=== PATIENT | male | born 1995 | race Caucasian/White ===

== ENCOUNTER 2021-04-11 10:16 | Emergency (ER) | payer SELFPAY ==
[2021-04-11 10:46] VITALS: BP 139/84; PULSE 75; RESP 15; TEMP 36.9; O2SAT 96; BMI 32.3
--- NOTE | 2021-04-11 10:55 | ED_ITS ---
HPI - Male Genitourinary General: Chief complaint: Urogenital-Male Stated complaint: PAINFUL URINATION Time Seen by Provider: 04/11/21 10:27 Source: patient Mode of arrival: ambulatory Limitations: no limitations History of Present Illness: HPI Narrative: Patient is a 25-year-old male who presents to ED today with complaints of dysuria and penile discharge over the past few days. Patient states he is monogamous with his girlfriend. They have had unprotected vaginal intercourse. Patient denies any anal intercourse. He has not noticed any rashes or lesions to his genitalia. MD Complaint: penile discharge and dysuria Onset (ago): day(s) Duration: constant Radiation: penis Quality: sharp Relieving factors: none Exacerbating factors: urination Associated symptoms: Reports dysuria; Deny hematuria or urinary incontinence Related Data: Sexually active: Yes Review of Systems Const: Denies: fever(s), chills, body aches, fatigue or malaise GI: Denies: abdominal pain : Reports: dysuria and penile discharge; Denies: flank pain, difficulty urinating, urinary frequency, urinary urgency, urinary hesitancy, urinary dribbling, urinary incontinence, hematuria, genital pain, genital lesions, testicular pain, testicular mass, scrotal swelling, painful ejaculations or hematospermia Musc: Denies: back pain Skin/Breast: Denies: rash Physical Exam Const: COMMON NORMALS: no acute distress, average body habitus, patient oriented x3, no limitations, healthy appearing, alert and well nourished : COMMON NORMALS: Yes no CVA tenderness and Yes scrotum normal BLADDER/KIDNEY EXAM: Yes no CVA tenderness MALE GROIN/PERINEUM EXAM: No Genital lesions present PENIS: no condylomata, not edematous, not erythematous, no vesicles and No Genital lesions present MEATUS: meatal discharge SCROTUM: Yes testes descended bilaterally and No scrotal swelling TESTES: Yes testicular lie normal, No testicular swelling and Yes epididymides normal OTHER: normal genital exam apart from penile discharge noted Back/Pelvis: COMMON NORMALS: no CVA tenderness Neuro: COMMON NORMALS: patient oriented x3 SENSORIUM/ORIENTATION: Yes alert Course Vital Signs: Vital signs: Vital Signs Temperature 98.5 F 04/11/21 10:46 Pulse Rate 75 04/11/21 10:46 Respiratory Rate 15 04/11/21 10:46 Blood Pressure 139/84 04/11/21 10:46 Pulse Oximetry 96 04/11/21 10:46 MDM - Male MDM Narrative: Medical decision making narrative: Patient here for dysuria and penile discharge. His UA is normal. Gonorrhea/chlamydia ran off of his urine. Will be treated prophylactically with IM Rocephin and will place on doxycycline. Instructed for no sexual abstinence until antibiotics are complete and he knows testing results. Recommend sexual partners also get tested. Lab Data: Attestation: I reviewed the patient's lab results. Labs: Lab Results 04/11/21 10:59 Urine Color Yellow (Yellow) Urine Appearance Clear (CLEAR) Urine pH 5 (5-7) Ur Specific Gravit y 1.025 (1.005-1.030) Urine Protein Neg (Negative) Urine Glucose (UA) Norm (Normal) Urine Ketones Negative (Negative) Urine Blood Neg (Negative) Urine Nitrate Negative (Negative) Urine Bilirubin Neg (Negative) Urine Urobilinogen Norm mg/dL mg/dL (Negative) Ur Leukocyte Cheryl ase Negative (Negative) Discharge Plan Discharge Patient Disposition: Home Clinical Impression: Urethritis Condition: Stable Prescriptions: New doxycycline hyclate 100 mg capsule 100 mg PO Q12H 7 Days Qty: 14 RF: 0 Discharge Orders: Discharge ED (Routine); Ordered 04/11/21 Ordered By: Rachel Larson Patient Instructions: Urethritis - Male Activity Restrictions/Additional Instructions: As we discussed you need to abstain from all sexual activity until you complete the entire antibiotic course and until you know results from testing today. If gonorrhea/chlamydia testing comes back positive you need to alert all sexual partners so they can get tested and treated as well. Coding Level of Care Code ED Creative Writing Professor for Yemi Fwd Exam Expanded Problem Focused
[2021-04-11 11:20] LABS: Add Urine Microscopic? NO; Charge for UA Resulting for Rev
[2021-04-11 11:26] LABS: Urine Appearance Clear (CLEAR); Urine Color Yellow (Yellow); pH Urine 5 (5-7)
[2021-04-11 11:27] LABS: Bilirubin Urine Neg (Negative); Blood Urine Neg (Negative); Glucose Urine UA Norm (Normal); Ketones Urine Negative (Negative); Leukocyte Esterase Urine Negative (Negative); Nitrate Urine Negative (Negative); Protein Urine Neg (Negative); Specific Gravity, Urine 1.025 (1.005-1.030); Urobilinogen Urine Norm (Negative)
[2021-04-11 11:50] VITALS: BP 139/84; PULSE 75; RESP 15; TEMP 36.9; O2SAT 96
== END 2021-04-11 11:50 | disposition home or self-care (01) ==
PROVIDERS: Emergency Provider Physician Assistant
DX: N34.2 Other urethritis (principal)
CPT/HCPCS: 81003; 87491; 87591; 96372; 99283; J0696

== ENCOUNTER 2023-03-23 16:34 | Emergency (ER) | payer SELFPAY ==
[2023-03-23 16:38] VITALS: BP 123/89; PULSE 85; RESP 16; TEMP 36.6; O2SAT 98; BMI 36.6
--- NOTE | 2023-03-23 16:54 | W.ED.WOUNDLC ---
HPI - Wound/Laceration General: Chief Complaint: Wound/Laceration Stated Complaint: laceration right thumb Time Seen by Provider: 03/23/23 16:43 History of Present Illness: 27-year-old male patient comes in today with injury to the right thumb. On exam patient has a 4 cm laceration to the volar aspect of the right thumb. Patient has normal range of motion of the thumb. Patient reports tetanus is up-to-date. Patient appears nontoxic. Patient denies any chronic medical problems. No injury to the nailbed is noted. No foreign body is noted. Review of Systems General: Reports: 10 or more systems reviewed and unremarkable except in HPI and below Musc: Reports: extremity pain Skin/Breast: Reports: new lesions Physical Exam Const: COMMON NORMALS: alert HENMT: COMMON NORMALS: atraumatic HEAD & SCALP: atraumatic Neck/C-Spine: COMMON NORMALS: full ROM Resp: COMMON NORMALS: normal respiratory effort Cardio: COMMON NORMALS: regular rate RATE: regular rate Back/Pelvis: COMMON NORMALS: thoracic and lumbar spine normal to inspection Extremity: RIGHT UPPER EXTREMITY: Yes hand & digits (Flap 4 cm laceration dorsal thumb) Neuro: SENSORIUM/ORIENTATION: Yes alert Skin: TRAUMA: laceration (Right dorsal thumb) flap Procedures Laceration Laceration 1: Site: hand (Right thumb) Side (If applicable): right Size (cm): 4 Description: flap Local Anesthetic: lidocaine 2% and with epi Amount of anesthesia used (mL): 4 Pre-repair: wound explored and irrigated extensively Skin layer closed with: nylon Size (cm): 4-0 Number of sutures: 8 Course Vital Signs: Vital signs: Vital Signs Temperature 97.9 F 03/23/23 16:38 Pulse Rate 85 03/23/23 16:38 Respiratory Rate 16 03/23/23 16:38 Blood Pressure 123/89 03/23/23 16:38 Pulse Oximetry 98 03/23/23 16:38 MDM - Wound/Laceration Medical Decision Making Patient presented with a laceration to the right thumb. Patient had normal range of motion of the thumb. No foreign bodies were noted. No tendon injury was noted. No fracture was noted. No injury to the nailbed was noted. Differential diagnosis included but not limited to foreign body, fracture, laceration, tendon injury. Wound was repaired with sutures. Patient tolerated well. Dressing applied and patient discharged home. Patient reported understanding of care plan and need for follow-up or return to the ER. No radiology studies performed this visit Discharge Plan Discharge Patient Disposition: Home Clinical Impression: Laceration of thumb Qualifiers: Encounter type: initial encounter Damage to nail status: without damage Foreign body presence: without foreign body Laterality: right Qualified Code(s): S61.011A - Laceration without foreign body of right thumb without damage to nail, initial encounter Condition: Stable Prescriptions: New cephalexin 500 mg capsule 500 mg PO TID 7 Days Qty: 21 0RF Discharge Orders: Discharge ED (Routine); Ordered 03/23/23 Ordered By: Gilmer Fine Discharge Diet: Usual diet Discharge Activity: Increase activity as tolerated Patient Instructions: Finger Laceration (ED) Activity Restrictions/Additional Instructions: Keep wound clean and dry. Is very important keep the wound dry and clean as possible. Is very important keep the wound dry for the next 48 hours. After that she can wash wound gently with mild soap and water dry thoroughly and recover to protect. It may be left open to air as long as it is not going to get soiled or dirty. Follow-up with primary care in 1 week for recheck. Return to ED for new concerns. Coding Level of Care Code ED Paying Teller for Yemi Carrillo
[2023-03-23] MEDS: cephALEXin 500 mg Capsule PO (17:53)
[2023-03-23] MEDS: lidocaine-epi 2% 20 mL INJ INJECTION (17:53)
== END 2023-03-23 18:12 | disposition home or self-care (01) ==
PROVIDERS: Emergency Provider Nurse Practitioner Family
DX: S61.011A Laceration without foreign body of right thumb without damage to nail, initial encounter (principal); X58.XXXA Exposure to other specified factors, initial encounter
CPT/HCPCS: 12002; 99283

== ENCOUNTER 2023-09-27 11:40 | Emergency (ER) | payer SELFPAY ==
[2023-09-27 11:48] VITALS: BP 122/76; PULSE 66; RESP 22; TEMP 36.5; O2SAT 97; BMI 37.1
--- NOTE | 2023-09-27 11:53 | XRR_ITS ---
PROCEDURE INFORMATION: Exam: XR Left Hand Exam date and time: 09/27/2023 12:01 PM Age: 28 years old Clinical indication: Injury or trauma; Other: Smashed hand; Blunt trauma (contusions or hematomas); Left; Additional info: Injury/trauma TECHNIQUE: Imaging protocol: Radiologic exam of the left hand. Views: 3 or more views. COMPARISON: No relevant prior studies available. FINDINGS: Bones/joints: No acute fracture or dislocation. Joint spaces are preserved. Soft tissues: Normal. XR/XR hand LT min 3V* [id number] IMPRESSION: No acute fracture or dislocation.
--- NOTE | 2023-09-27 12:21 | W.ED.UPPEXIN ---
HPI - Extremity Injury (Upper) General: Chief Complaint: Extremity Injury, Upper Stated Complaint: hand pain Time Seen by Provider: 09/27/23 12:20 Source: patient Mode of arrival: ambulatory Limitations: no limitations History of Present Illness: Patient is a 28-year-old male who presents to the ED today with a complaint of an injury to his left hand that he sustained just prior to arrival after accidentally struck it using a sledgehammer. He has no other injuries or complaints at this time. complaint: injury to: left and hand Onset (ago): hour(s) Other Extremity Injury: Left: hand Other injuries: none Place: home Severity: moderate Exacerbating factors: movement of extremity Context: direct blow Associated symptoms: Reports no associated symptoms Review of Systems Musc: Reports: extremity pain (L hand) and extremity swelling (L hand) Neuro: Denies: numbness in extremities or sensory changes Physical Exam Const: COMMON NORMALS: no acute distress, no limitations, alert and well nourished Extremity: COMMON NORMALS: capillary refill normal GENERAL: Yes normal exam except as noted LEFT UPPER EXTREMITY: Yes hand & digits (TTP radial dorsal hand; edema; no bony deformity) Left hand and digits: Yes ROM (normal) and Yes neurovascular exam (normal) Neuro: SENSORIUM/ORIENTATION: Yes alert Skin: TRAUMA: no lacerations or abrasions Course Vital Signs: Vital signs: Vital Signs Temperature 97.7 F 09/27/23 11:48 Pulse Rate 66 09/27/23 11:48 Respiratory Rate 22 H 09/27/23 11:48 Blood Pressure 122/76 09/27/23 11:48 Pulse Oximetry 97 09/27/23 11:48 Oxygen Delivery Me thod Room Air 09/27/23 11:48 MDM - Extremity Injury (Upper) Medical Decision Making XR negative. Patient will be allowed discharge with options for conservative therapies at home. He can follow-up with PCP in 1-2 weeks if symptoms do not seem to be improving. Differential Diagnosis Likely sprain and strain of wrist, finger sprain and dislocation of finger Lab Data Radiology Impressions Hand X-Ray 09/27/23 11:53 IMPRESSION: No acute fracture or dislocation. XR interpretation done by ED provider, pending radiology final review Discharge Plan Discharge Patient Disposition: Home Clinical Impression: Crushing injury of hand, left Qualifiers: Encounter type: initial encounter Qualified Code(s): S67.22XA - Crushing injury of left hand, initial encounter Condition: Stable Discharge Orders: Discharge ED (Routine); Ordered 09/27/23 Ordered By: Rachel Larson Patient Instructions: RICE Therapy Coding Level of Care Code ED Fluid Dynamicist for Yemi Carrillo
== END 2023-09-27 12:38 | disposition home or self-care (01) ==
PROVIDERS: Emergency Provider Physician Assistant
DX: S67.22XA Crushing injury of left hand, initial encounter (principal); W27.8XXA Contact with other nonpowered hand tool, initial encounter
CPT/HCPCS: 73130; 99283

== ENCOUNTER 2024-09-13 14:16 | Emergency (ER) | payer SELFPAY ==
[2024-09-13 14:17] VITALS: BP 133/70; PULSE 109; RESP 16; TEMP 37.1; O2SAT 96; BMI 37.1
--- NOTE | 2024-09-13 14:42 | ED_ITS ---
HPI - Wound/Laceration General: Chief Complaint: Wound/Laceration Stated Complaint: Cut in left leg Time Seen by Provider: 09/13/24 14:40 History of Present Illness: This patient is a 29-year-old white male who presents to the emergency department with a laceration to the left lower leg. Patient states he was working in his shop today and bumped up against a piece of metal. Related Data Previous Rx's ?Medication ?Instructions ?Recorded cephalexin 500 mg capsule 500 mg PO QID 7 days #28 cap s 09/13/24 Allergies Allergy/AdvReac Type Severity Reaction Status Date / Time No Known Allergies Allergy Verified 03/23/23 16:38 Review of Systems General: Reports: 10 or more systems reviewed and unremarkable except in HPI and below Skin/Breast: Reports: other (Laceration left lower leg) Physical Exam Const: COMMON NORMALS: no acute distress, patient oriented x3 and no limitations GENERAL APPEARANCE: cooperative and comfortable HENMT: COMMON NORMALS: normocephalic, atraumatic, Normal nasal mucous membranes and turbinates present, moist oral mucous membranes and oropharynx normal HEAD & SCALP: normal to inspection, normocephalic and atraumatic FACE & SINUS: normal facial exam NOSE: Normal nasal mucous membranes and turbinates present Eye: COMMON NORMALS: Equal, round and reactive pupils present, EOMs intact bilaterally and conjunctivae normal GENERAL EYE: appearance normal, both eyes and all related structures CONJUNCTIVA: Yes conjunctivae normal PUPIL: Yes Equal, round and reactive pupils present Neck/C-Spine: COMMON NORMALS: supple and no JVD Chest: COMMONS NORMALS: normal inspection of the chest Resp: COMMON NORMALS: normal respiratory effort and clear to auscultation bilaterally AUSCULTATION: clear to auscultation bilaterally Cardio: COMMON NORMALS: no JVD, regular rate, regular rhythm, No gallops present (Cardio), No murmurs present (Cardio) and No rub (Cardio) RATE: regular rate RHYTHM: regular rhythm GI: COMMON NORMALS: Normal to inspection, nondistended, normoactive bowel sounds present, Soft to palpation and non-tender AUSCULTATION: Yes normoactive bowel sounds PALPATION: Yes Soft to palpation : COMMON NORMALS: Yes no CVA tenderness BLADDER/KIDNEY EXAM: Yes no CVA tenderness Back/Pelvis: COMMON NORMALS: no CVA tenderness and thoracic and lumbar spine normal to inspection Extremity: COMMON NORMALS: normal to inspection Neuro: COMMON NORMALS: patient oriented x3 and CN's II-XII intact bilaterally Psych: COMMON NORMALS: mental status grossly normal, Normal thought process present and cooperative THOUGHT PROCESS: Normal thought process present Skin: NARRATIVE SKIN EXAM: Approximately 5 to 6 cm laceration left lower leg just below the knee. Course Vital Signs: Vital signs: Vital Signs Temperature 98.8 F 09/13/24 14:17 Pulse Rate 109 H 09/13/24 14:17 Respiratory Rate 16 09/13/24 14:17 Blood Pressure 133/70 09/13/24 14:17 Pulse Oximetry 96 09/13/24 14:17 Oxygen Delivery Me thod Room Air 09/13/24 14:17 MDM - Wound/Laceration Medical Decision Making I did have the nurse practitioner clean and repair the wound. Please refer to her note regarding the procedure. Patient was discharged in stable condition instructed to have the sutures removed in 7 to [address] him on Keflex. He was discharged in stable condition. Lab Data Radiology Impressions Tibia/Fibula X-Ray 09/13/24 16:20 IMPRESSION: 1. No acute osseous findings. 2. No radiopaque foreign body. All radiology interpretation(s) finalized by discharge Discharge Plan Discharge Patient Disposition: Home Clinical Impression: Laceration Condition: Stable Prescriptions: New cephalexin 500 mg capsule 500 mg PO QID 7 Days Qty: 28 0RF Discharge Orders: Discharge ED (Routine); Ordered 09/13/24 Ordered By: Dre Olguin Print Language: Somali Coding Level of Care Code ED Fiscal Services Manager for Yemi Carrillo
--- NOTE | 2024-09-13 16:20 | XRR_ITS ---
PROCEDURE INFORMATION: Exam: XR Left Tibia and Fibula Exam date and time: 09/13/2024 4:42 PM Age: 29 years old Clinical indication: Injury or trauma; Other: Unknown; Laceration; Lower leg; Left; With foreign body; Additional info: Laceration, concern for opaque foreign body TECHNIQUE: Imaging protocol: Radiologic exam of the left tibia and fibula. Views: 2 views. COMPARISON: No relevant prior studies available. FINDINGS: Bones/joints: No acute fracture or dislocation. Soft tissues: Laceration along the lateral aspect of the proximal lower leg. No radiopaque foreign body is visualized. XR/XR tibia fibula LT 2V [id number] IMPRESSION: 1. No acute osseous findings. 2. No radiopaque foreign body.
[2024-09-13] MEDS: lidocaine 2% INJ 20 mL INJECTION (16:41)
[2024-09-13] MEDS: tetanus-dipt-pertussis 0.5 mL SDV IM (16:52)
--- NOTE | 2024-09-13 17:11 | W.ED.WOUNDLC ---
Documented by User: NIYAH Mendieta 09/13/24 17:18 HPI - Wound/Laceration General: Chief Complaint: Wound/Laceration Stated Complaint: Cut in left leg Time Seen by Provider: 09/13/24 14:40 History of Present Illness: Patient was at his shop, working, stumbled, and fell back on unknown material with large laceration to lower leg. Related Data Previous Rx's ?Medication ?Instructions ?Recorded cephalexin 500 mg capsule 500 mg PO QID 7 days #28 caps 09/13/24 Allergies Allergy/AdvReac Type Severity Reaction Status Date / Time No Known Allergies Allergy Verified 03/23/23 16:38 Procedures Laceration Laceration 1: Site: lower extremity Side (If applicable): left Size (cm): 7 Description: linear and flap Depth: involves muscle layer Local Anesthetic: lidocaine 1% Amount of anesthesia used (mL): 8 Pre-repair: wound explored, irrigated extensively and wound margins revised Skin layer closed with: nylon Size (cm): 3-0 Number of sutures: 5 Technique: simple, interrupted Subcutaneous layer closed with: vicryl Size: 4-0 Number of sutures: 1 Technique: running Course ED course: Consulted for suture repair. Left mid lateral leg had a linear, curved, with flap, dirty. This area was anesthetized with 1% lidocaine, clean, irrigated with greater than 100 mL of saline, then Vicryl running suture x 1 the length of the inside wound, then simple sutures x 5. Patient tolerated without any issues. X-ray did not appear to have foreign body. Vital Signs: Vital signs: Vital Signs Temperature 98.8 F 09/13/24 14:17 Pulse Rate 109 H 09/13/24 14:17 Respiratory Rate 16 09/13/24 14:17 Blood Pressure 133/70 09/13/24 14:17 Pulse Oximetry 96 09/13/24 14:17 Oxygen Delivery Me thod Room Air 09/13/24 14:17 MDM - Wound/Laceration Medical Decision Making Patient stumbled, fell, with laceration to left lower leg. I was consulted by ED physician for sutures only. X-ray without foreign body. Tetanus ordered. Sutures as noted above. Will defer additional care to primary. Lab Data Radiology Impressions Tibia/Fibula X-Ray 09/13/24 16:20 IMPRESSION: 1. No acute osseous findings. 2. No radiopaque foreign body. All radiology interpretation(s) finalized by discharge Discharge Plan Discharge Patient Disposition: Home Clinical Impression: Laceration Condition: Stable Prescriptions: New cephalexin 500 mg capsule 500 mg PO QID 7 Days Qty: 28 0RF Discharge Orders: Discharge ED (Routine); Ordered 09/13/24 Ordered By: Dre Olguin Print Language: Gibraltarian Coding Level of Care Code ED Senior Product Marketing Manager for Chg Fwd Documented by User: Dre Olguin MD 09/13/24 18:27 HPI - Wound/Laceration General: Chief Complaint: Wound/Laceration Stated Complaint: Cut in left leg Time Seen by Provider: 09/13/24 14:40 Related Data Previous Rx's ?Medication ?Instructions ?Recorded cephalexin 500 mg capsule 500 mg PO QID 7 days #28 caps 09/13/24 Allergies Allergy/AdvReac Type Severity Reaction Status Date / Time No Known Allergies Allergy Verified 03/23/23 16:38 Review of Systems General: Reports: 10 or more systems reviewed and unremarkable except in HPI and below Physical Exam Const: COMMON NORMALS: no acute distress, patient oriented x3 and no limitations GENERAL APPEARANCE: cooperative and comfortable HENMT: COMMON NORMALS: normocephalic, atraumatic, Normal nasal mucous membranes and turbinates present, moist oral mucous membranes and oropharynx normal HEAD & SCALP: normal to inspection, normocephalic and atraumatic FACE & SINUS: normal facial exam NOSE: Normal nasal mucous membranes and turbinates present Eye: COMMON NORMALS: Equal, round and reactive pupils present, EOMs intact bilaterally and conjunctivae normal GENERAL EYE: appearance normal, both eyes and all related structures CONJUNCTIVA: Yes conjunctivae normal PUPIL: Yes Equal, round and reactive pupils present Neck/C-Spine: COMMON NORMALS: supple and no JVD Chest: COMMONS NORMALS: normal inspection of the chest Resp: COMMON NORMALS: normal respiratory effort and clear to auscultation bilaterally AUSCULTATION: clear to auscultation bilaterally Cardio: COMMON NORMALS: no JVD, regular rate, regular rhythm, No gallops present (Cardio), No murmurs present (Cardio) and No rub (Cardio) RATE: regular rate RHYTHM: regular rhythm GI: COMMON NORMALS: Normal to inspection, nondistended, normoactive bowel sounds present, Soft to palpation and non-tender AUSCULTATION: Yes normoactive bowel sounds PALPATION: Yes Soft to palpation : COMMON NORMALS: Yes no CVA tenderness BLADDER/KIDNEY EXAM: Yes no CVA tenderness Back/Pelvis: COMMON NORMALS: no CVA tenderness and thoracic and lumbar spine normal to inspection Extremity: COMMON NORMALS: normal to inspection Neuro: COMMON NORMALS: patient oriented x3 and CN's II-XII intact bilaterally Psych: COMMON NORMALS: mental status grossly normal, Normal thought process present and cooperative THOUGHT PROCESS: Normal thought process present Skin: NARRATIVE SKIN EXAM: Approximately 5 to 6 cm laceration along the anterolateral aspect of the left lower leg just beneath the knee. No tendon involvement. Course Vital Signs: Vital signs: Vital Signs Temperature 98.8 F 09/13/24 14:17 Pulse Rate 109 H 09/13/24 14:17 Respiratory Rate 16 09/13/24 14:17 Blood Pressure 133/70 09/13/24 14:17 Pulse Oximetry 96 09/13/24 14:17 Oxygen Delivery Me thod Room Air 09/13/24 14:17 MDM - Wound/Laceration Medical Decision Making Patient stumbled, fell, with laceration to left lower leg. I was consulted by ED physician for sutures only. X-ray without foreign body. Tetanus ordered. Sutures as noted above. Will defer additional care to primary. Patient was instructed to have the sutures removed in 7 to [address] him on Keflex. He was discharged in stable condition. Lab Data Radiology Impressions Tibia/Fibula X-Ray 09/13/24 16:20 IMPRESSION: 1. No acute osseous findings. 2. No radiopaque foreign body. Discharge Plan Discharge Patient Disposition: Home Clinical Impression: Laceration Condition: Stable Prescriptions: New cephalexin 500 mg capsule 500 mg PO QID 7 Days Qty: 28 0RF Discharge Orders: Discharge ED (Routine); Ordered 09/13/24 Ordered By: Dre Olguin Print Language: Gibraltarian Coding Level of Care Code ED Senior Product Marketing Manager for Yemi Carrillo
== END 2024-09-13 17:42 | disposition home or self-care (01) ==
PROVIDERS: Emergency Provider Emergency Medicine
DX: S81.812A Laceration without foreign body, left lower leg, initial encounter (principal); W01.10XA Fall on same level from slipping, tripping and stumbling with subsequent striking against unspecified object, initial encounter
CPT/HCPCS: 12032; 73590; 90471; 90715; 99283; J9999

== ENCOUNTER 2025-03-25 10:49 | Emergency (ER) | payer SELFPAY ==
--- NOTE | 2025-03-25 10:50 | XRR_ITS ---
PROCEDURE INFORMATION: Exam: XR Right Ankle Exam date and time: 03/25/2025 11:15 AM Age: 29 years old Clinical indication: Injury or trauma; Other: Not specified; Blunt trauma; Ankle; Right; Additional info: Injury/pain TECHNIQUE: Imaging protocol: Radiologic exam of the right ankle. Views: 3 or more views. COMPARISON: CR XR foot RT min 3V* [id number] 03/25/2025 11:15 AM FINDINGS: Bones/joints: There are oval-shaped ossifications along the medial malleolus which have a chronic appearance likely related to a prior injury/prior trauma. Anatomic alignment of the tibiotalar joint space. Preserved tibiotalar joint space. Preserved height of the talar dome. Soft tissues: Mild swelling along the ankle. XR/XR ankle RT min 3V* [id number] IMPRESSION: 1. Mild swelling along the ankle. 2. No acute appearing fracture or traumatic malalignment. Anatomic alignment of the ankle. 3. Corticated areas of ossification along the medial malleolus likely related to prior trauma.
[2025-03-25 10:59] VITALS: BP 132/76; PULSE 78; RESP 18; TEMP 36.7; O2SAT 97
--- NOTE | 2025-03-25 11:06 | XRR_ITS ---
PROCEDURE INFORMATION: Exam: XR Right Foot Exam date and time: 03/25/2025 11:15 AM Age: 29 years old Clinical indication: Injury or trauma; Other: Not specified; Blunt trauma; Foot; Right; Additional info: Injury/pain TECHNIQUE: Imaging protocol: Radiologic exam of the right foot. Views: 3 or more views. COMPARISON: CR XR ankle RT min 3V* [id number] 03/25/2025 11:15 AM FINDINGS: Bones/joints: On the lateral view there is a serpentine lucency through the mid talus. No traumatic malalignment of the foot. Preserved joint spaces of the foot. Soft tissues: Mild swelling along the ankle. XR/XR foot RT min 3V* [id number] IMPRESSION: 1. On the lateral view there is a serpentine lucency through the mid talus. The appearance is more suggestive of a vascular channel than a nondisplaced fracture line given the shape and course. Can correlate with any history of trauma along this area. If necessary correlation with a short-term follow-up radiographs or a CT could be performed. 2. Mild swelling along the ankle. 3. Otherwise unremarkable foot radiographs.
--- NOTE | 2025-03-25 11:22 | W.ED.EXTPRO ---
HPI - Extremity Problem General: Chief complaint: Extremity Injury, Lower Stated complaint: R ankle pain Time Seen by Provider: 03/25/25 11:19 History of Present Illness: 29-year-old male with no known past medical history who presents to the emergency room with a right ankle injury. He stepped off a trailer felt a pop. He has not been able to bear weight on it since. Mild swelling. Pain on the posterior side of the malleoli bilaterally. Neurovascular intact. No other injuries. Related Data Allergies Allergy/AdvReac Type Severity Reaction Status Date / Time No Known Allergies Allergy Verified 03/23/23 16:38 Review of Systems Narrative: Constitutional symptoms: Negative except as documented in HPI. Skin symptoms: Negative except as documented in HPI. Eye symptoms: Negative except as documented in HPI. ENMT symptoms: Negative except as documented in HPI. Respiratory symptoms: Negative except as documented in HPI. Cardiovascular symptoms: Negative except as documented in HPI. Gastrointestinal symptoms: Negative except as documented in HPI. Genitourinary symptoms: Negative except as documented in HPI. Musculoskeletal symptoms: Negative except as documented in HPI. Neurologic symptoms: Negative except as documented in HPI. Psychiatric symptoms: Negative except as documented in HPI. Endocrine symptoms: Negative except as documented in HPI. Physical Exam Narrative: EXAM NARRATIVE: General: Alert, no acute distress. Skin: warm and dry Head: Normocephalic Neck: Trachea midline Eye: Extraocular movements are intact. Ears, nose, mouth and throat: Oral mucosa moist Respiratory: Respirations are non-labored Musculoskeletal: Mild swelling. Some tenderness of the malleoli bilaterally. Neurovascular intact. Range of motion limited by pain. Gastrointestinal: Abdomen does not appear distended Neurological: Alert and oriented, No focal neurological deficit observed. Psychiatric: Cooperative, appropriate mood & affect. Course Vital Signs: Vital signs: Vital Signs Temperature 98.1 F 03/25/25 10:59 Pulse Rate 78 03/25/25 10:59 Respiratory Rate 18 03/25/25 10:59 Blood Pressure 132/76 03/25/25 10:59 Pulse Oximetry 99 03/25/25 11:49 Oxygen Delivery Me thod Room Air 03/25/25 11:49 MDM - Extremity (Nontraumatic) Medical Decision Making Medical decision making Patient's reason for coming to the emergency room: Ankle injury Social determinants: Patient is employed I reviewed the patient's medical record. Patient's last visit to the emergency room was in September for laceration. I reviewed the patient's current home meds Patient takes no chronic medications Alternate historians: None Differential diagnosis including but not limited to and based on the above HPI, review of systems and physical exam: In this patient with a musculoskeletal extremity traumatic injury and x-ray is being ordered to rule out fractures and dislocations. Orders placed to evaluate differential diagnosis based on the above differential, HPI and physical exam X-ray of the right ankle and foot: No obvious fractures or dislocations. This was reviewed and interpreted by myself the emergency room physician. I also reviewed the radiology report. There was concern for a lucency through the talus. A CT was ordered to further evaluate CT of the foot: No acute process. This was reviewed and interpreted by myself the emergency room physician. I also reviewed the radiology report. Reexamination: Patient remained stable. No increased work of breathing. No altered mental status. No focal motor deficits. Assessment and plan: Ankle sprain - Discharged home - Discussed plan with patient. Answered any questions. - Evaluation and treatment of this problem were appropriate in the emergency setting. Lab Data Radiology Impressions Ankle X-Ray 03/25/25 10:50 IMPRESSION: 1. Mild swelling along the ankle. 2. No acute appearing fracture or traumatic malalignment. Anatomic alignment of the ankle. 3. Corticated areas of ossification along the medial malleolus likely related to prior trauma. Foot X-Ray 03/25/25 11:06 IMPRESSION: 1. On the lateral view there is a serpentine lucency through the mid talus. The appearance is more suggestive of a vascular channel than a nondisplaced fracture line given the shape and course. Can correlate with any history of trauma along this area. If necessary correlation with a short-term follow-up radiographs or a CT could be performed. 2. Mild swelling along the ankle. 3. Otherwise unremarkable foot radiographs. Foot CT 03/25/25 11:52 IMPRESSION: 1. No acute fracture or dislocation. 2. Small corticated ossicles along the distal aspect of the medial malleolus, likely sequela of prior injury. There is soft tissue swelling in this area, which could reflect tendinous/ligamentous injury. If symptoms warrant, follow up nonemergent noncontrast MRI could be considered for further evaluation. All radiology interpretation(s) finalized by discharge Discharge Plan Discharge Patient Disposition: Home Clinical Impression: Ankle sprain and strain Condition: Stable Discharge Orders: Discharge ED (Routine); Ordered 03/25/25 Ordered By: Mica Sawyer Referrals: Zia Garcia DPM [Physician, Podiatry] - 7-10 days Referral Note: call for an appointment if pain does not improve Discharge Diet: Usual diet Discharge Activity: Increase activity as tolerated Patient Instructions: Ankle Sprain (ED), P.R.I.C.E. Treatment (ED), Opioid Safety, Pain Management, Patient Portal & Jose Instructions Activity Restrictions/Additional Instructions: Thank you for choosing [facility] for your healthcare needs today. You have been screened and evaluated and felt safe for discharge. Health conditions do change or evolve sometimes and as such it is important that you follow up with your Primary Doctor to be re checked, 3-5 days is a general good time frame for follow up. You are always welcome to return to the ED for re assessment if your symptoms are worsening or you have new concerns. (Please note that included in your discharge packet is information concerning opioid safety and pain management. This information is given to all patients who are discharged from the ER regardless of their discharge diagnosis or the medicines they usually take or are prescribed.) Print Language: Thai Coding Level of Care Code ED Community Relations Liaison for Yemi Carrillo
[2025-03-25 11:49] VITALS: O2SAT 99
--- NOTE | 2025-03-25 11:52 | CTR_ITS ---
PROCEDURE INFORMATION: Exam: CT Right Lower Extremity Without Contrast, Foot Exam date and time: 03/25/2025 11:56 AM Age: 29 years old Clinical indication: Injury or trauma; Other: Stepped off trailer wrong; Sprain or strain; Injury date: 03/24/25; Injury details: Patient reports he stepped off a trailer wrong yesterday and has been unable to bare weight on right foot. Patient has swelling to right foot; Additional info: Possible occult fracture TECHNIQUE: Imaging protocol: CT of the right lower extremity without contrast was performed. Exam focused on the foot. Radiation optimization: All CT scans at this facility use at least one of these dose optimization techniques: automated exposure control; mA and/or kV adjustment per patient size (includes targeted exams where dose is matched to clinical indication); or iterative reconstruction. COMPARISON: CR XR foot RT min 3V* [id number] 03/25/2025 11:15 AM RADIATION DOSE METRICS: Total DLP (mGy-cm): 152.53 FINDINGS: Bones/joints: No acute fracture, dislocation, or destructive osseous changes. No evidence of talus fracture. Small corticated ossicles along the distal aspect of the medial malleolus, likely sequela of prior injury. There is soft tissue swelling in this area, which could reflect tendinous/ligamentous injury. CT/CT foot RT wo con* [id number] IMPRESSION: 1. No acute fracture or dislocation. 2. Small corticated ossicles along the distal aspect of the medial malleolus, likely sequela of prior injury. There is soft tissue swelling in this area, which could reflect tendinous/ligamentous injury. If symptoms warrant, follow up nonemergent noncontrast MRI could be considered for further evaluation.
== END 2025-03-25 12:52 | disposition home or self-care (01) ==
PROVIDERS: Emergency Provider Emergency Medicine
DX: S93.401A Sprain of unspecified ligament of right ankle, initial encounter (principal); X58.XXXA Exposure to other specified factors, initial encounter
CPT/HCPCS: 73610; 73630; 73700; 99284